=== PATIENT | male | born 1955 ===

== ENCOUNTER 2021-05-23 15:52 | Emergency (ER) | payer OTHER, BC ==
[2021-05-23 16:14] VITALS: BP 161/80; PULSE 66; TEMP 98; BMI 47.2
[2021-05-23] MEDS ORDERED: DIPHTH,PERTUSS(ACELL),TET 0.5 ML DISP.SYRIN IM ONE ×2 (16:33→16:57)
== END 2021-05-23 18:07 | disposition home or self-care (01) ==
LOC: FER 15:52
PROC: 3E0234Z Introduction of Serum, Toxoid and Vaccine into Muscle, Percutaneous Approach (ICD-10-PCS; principal; 2021-05-23)
DX: S09.90XA Unspecified injury of head, initial encounter (principal); W10.9XXA Fall (on) (from) unspecified stairs and steps, initial encounter; Y92.9 Unspecified place or not applicable
CPT/HCPCS: 70450-TC; 72125-TC; 90715; 99284-25